=== PATIENT | male | born 1980 | race Two or more races ===

== ENCOUNTER 2016-08-22 12:27 | Day surgery (SDC) | payer OTHER ==
[2016-08-22] VITALS (9 sets, daily range): BP systolic 99–128; BP diastolic 56–70; PULSE 56–71; RESP 12–20; Ht 185.4 cm; Wt 108.0 kg
[~2016-08-22] VITALS: Ht 185.4 cm; Wt 108.0 kg
[~2016-08-22 12:27] MED LIST: CEFAZOLIN 2 GM/50 ML (PMX) 50 ML IVPB SCH; DIPHENHYDRAMINE 50 MG INJ IV PRN; FENTAnyl 50 MCG/ML VIAL IV PRN; HYDROmorphONE (0.2 MG/ML) 10ML SYG IV PRN; KETOROLAC 30 MG INJ IV ONE; MEPERIDINE 25 MG INJ IV PRN; ONDANSETRON 4 MG INJ IV PRN; OXYCODONE/ACETAMINOPHEN (5/325) TAB PO PRN; PROCHLORPERAZINE 10 MG INJ IV PRN; SOD CHLORIDE 0.9% 1,000 ML IV SCH; [UNRECOGNIZED DRUG - REMARK]
[2016-08-22] MEDS ORDERED: ATEN50TA PO (12:58)
[2016-08-22] MEDS ORDERED: LOSA1TAB19 PO (12:59)
[2016-08-22] MEDS ORDERED: FENO48TA4 PO (12:59)
[2016-08-22] MEDS ORDERED: CHOL100062 PO (13:00)
[2016-08-22 13:55] LABS: INR 1.12; PARTIAL THROMBOPLASTIN TIME 30.3 Sec (25.0-35.0); PROTIME 14.4 Sec (12.2-14.2); PT RATIO 1.1
[2016-08-22] MEDS ORDERED: PROPOFOL 20 ML ONE (14:46)
[2016-08-22] MEDS ORDERED: LIDOCAINE 2% (SDV) 5 ML INJ ONE (14:46)
[2016-08-22] MEDS ORDERED: MIDAZOLAM 1 MG/ML 2 ML INJ ONE (14:47)
[2016-08-22] MEDS ORDERED: FENTAnyl 50 MCG/ML VIAL ONE (14:47)
[2016-08-22] MEDS ORDERED: BUPIVACAINE 0.5% (SDV) 30 ML INJ ONE (15:33)
[2016-08-22] MEDS ORDERED: LIDOCAINE 2% (MDV) 20 ML INJ ONE (15:33)
[2016-08-22] MEDS ORDERED: BUPIVACAINE 0.25% (MPF) 30 ML INJ ONE (15:33)
[2016-08-22] MEDS ORDERED: CEFAZOLIN 1 GM INJ ONE (15:47)
[2016-08-22] MEDS ORDERED: ONDANSETRON 4 MG INJ ONE (15:47)
[2016-08-22] MEDS ORDERED: METOCLOPRAMIDE 10 MG INJ ONE (15:47)
[2016-08-22] MEDS ORDERED: KETOROLAC 30 MG INJ ONE (16:05)
--- NOTE | 2016-08-22 16:12 | OPR ---
Date/Time of Note Date/Time of Note DATE: 08/22/16 TIME: 16:11 Operative Report Procedure Date: Aug 22, 2016 Preoperative Diagnosis back mass Postoperative Diagnosis same Operation Performed excision of back mass 6 cm incision and 4 cm mass localized adjacent tissue transfer with the use of skin flaps 12 sq cm defect therapeutic injection subcutaneously of local anesthesia Surgeon: Lyndon FAUST Specimens back mass Lyndon FAUST Aug 22, 2016 16:12
[2016-08-22] MEDS ORDERED: HYDROCODONE/APAP (5/325) TAB PO ONE (16:30)
--- NOTE | 2016-08-22 18:37 | OPR ---
DATE OF OPERATION: 08/22/2016 INDICATION: This is a 36-year-old male with a back mass. He requests surgical excision. Risks, al ternatives, benefits, and personnel were discussed with the patient. Patient expressed understandin g and consents to the operation. PREOPERATIVE DIAGNOSIS: Back mass. POSTOPERATIVE DIAGNOSIS: Back mass. OPERATION PERFORMED: 1. Excision of back mass with a 6 cm size incision and 4 cm size mass. 2. Localized adjacent tissue transfer with the use of skin flaps with 12 square cm defect. 3. Therapeutic injection of local anesthesia. CPT code 46493. SURGEON: Jhoan Cantrell MD SPECIMEN: Back mass. COMPLICATIONS: None. ANESTHESIA: MAC. DESCRIPTION OF PROCEDURE: The patient was taken to the OR and prepped and draped in the usual steri le fashion. Surgical timeout was performed. IV antibiotics were given. Local anesthesia was infil trated in and around the back mass. Transverse incision is made with a 15 blade and the back mass w as excised using cautery. There was good hemostasis. Due to the large tissue defect, localized adj acent tissue transfer with the use of skin flaps was performed. Multilevel closure with interrupted 3-0 Vicryl and skin miryam. Dry dressings were applied. Dictated By: JHOAN CANTRELL MD SB/MERCEDES Conf#: [id number] DID#: [id number]
== END 2016-08-22 17:33 | disposition home or self-care (01) ==
LOC: SDS 12:27
PROVIDERS: ATTEND Surgery
DX: L72.0 Epidermal cyst (principal); I12.9 Hypertensive chronic kidney disease with stage 1 through stage 4 chronic kidney disease, or unspecified chronic kidney disease; N18.9 Chronic kidney disease, unspecified
CPT/HCPCS: 14000; 85610; 85730; 88305; J0690; J1885; J2250; J2405; J2765; J3010; Z7512; Z7610

== ENCOUNTER 2016-09-03 16:11 | Emergency (ER) | payer OTHER ==
[~2016-09-03] VITALS: Ht 182.9 cm; Wt 107.5 kg
[~2016-09-03 16:11] MED LIST changes: +ATEN50TA PO; -CEFAZOLIN 2 GM/50 ML (PMX) 50 ML IVPB SCH; +CHOL100062 PO; -DIPHENHYDRAMINE 50 MG INJ IV PRN; +FENO48TA4 PO; -FENTAnyl 50 MCG/ML VIAL IV PRN; -HYDROmorphONE (0.2 MG/ML) 10ML SYG IV PRN; -KETOROLAC 30 MG INJ IV ONE; +LOSA1TAB19 PO; -MEPERIDINE 25 MG INJ IV PRN; -ONDANSETRON 4 MG INJ IV PRN; -OXYCODONE/ACETAMINOPHEN (5/325) TAB PO PRN; -PROCHLORPERAZINE 10 MG INJ IV PRN; -SOD CHLORIDE 0.9% 1,000 ML IV SCH; -[UNRECOGNIZED DRUG - REMARK]
[2016-09-03 16:14] VITALS: Ht 182.9 cm; Wt 107.5 kg
[2016-09-03] MEDS ORDERED: IBUP400T22 PO (17:06)
[2016-09-03] MEDS ORDERED: ACET325T33 PO (17:06)
--- NOTE | 2016-09-04 16:31 | ERD ---
ER Documentation Chief Complaint Date/Time DATE: 09/04/16 TIME: 16:25 Chief Complaint wound check left upper back HPI This is a 36-year-old male presenting to the emergency department for wound check of postsurgical wound. Patient states he had an excision of a back mass on 08/22/[address] Cantrell. Patient states he had miryam placed to surgical incision. Patient states 2 days ago he noticed light pink/clear drainage from wound. Patient states he removed 1 of the miryam. Patient contacted his doctor's office, Dr. Cantrell, and was told to go to the ER for evaluation. No fevers or chills. No pus or purulent drainage. No warmth or redness. ROS All systems reviewed and are negative except as per history of present illness. Medications Home Meds Active Scripts Ibuprofen* (Motrin*) 400 Mg Tab, 400 MG PO Q6, #15 TAB Prov:JACY ROCHA NP 09/03/16 Acetaminophen* (Tylenol*) 325 Mg Tablet, 2 TAB PO Q6 Y for PAIN AND OR ELEVATED TEMP, #20 TAB Prov:JACY ROCHA NP 09/03/16 Reported Medications Cholecalciferol* (Vitamin D3*) 1,000 Unit Tablet, 1000 UNIT PO DAILY, TAB 08/22/16 Fenofibrate Nanocrystallized* (Fenofibrate*) 48 Mg Tablet, 48 MG PO DAILY, TAB 08/22/16 Losartan-Hydrochlorothiazide (Losartan-HCTZ) 50-12.5 Mg Tab, 1 TAB PO DAILY, TAB 08/22/16 Atenolol* (Atenolol*) 50 Mg Tablet, 50 MG PO DAILY, #30 TAB 08/22/16 Allergies Allergies: Coded Allergies: shellfish derived (Unverified Allergy, Unknown, 08/22/16) PMhx/Soc History of Surgery: No Anesthesia Reaction: No Hx Neurological Disorder: No Hx Respiratory Disorders: No Hx Cardiac Disorders: No Hx Psychiatric Problems: No Hx Miscellaneous Medical Probl: No Hx Alcohol Use: No Hx Substance Use: No Hx Tobacco Use: No Physical Exam Vitals Vital Signs Date Time Temp Pulse Resp B/P Pulse Ox O2 Delivery O2 Flow Rate FiO2 09/03/16 16:14 98.2 82 18 119/72 99 Physical Exam Const: No acute distress, alert Head: Atraumatic Eyes: Normal Conjunctiva ENT: Normal External Ears, Nose and Mouth. Neck: Full range of motion..~ No meningismus. Resp: Clear to auscultation bilaterally Cardio: Regular rate and rhythm, no murmurs Abd: Soft, non tender, non distended. Normal bowel sounds Skin: There is a 6 cm linear laceration to mid upper back. Wound is approximated with small opening to left side. There are [address] no surrounding erythema, warmth or drainage. No abscess formation or induration. No active drainage. Back: No midline or flank tenderness Ext: No cyanosis, or edema Neur: Awake and alert Psych: Normal Mood and Affect Procedures/MDM MDM: This is a 36-year-old male presenting to emergency department with drainage from postsurgical wound. On physical exam, incision is well approximated with [address] There is no surrounding erythema, warmth , drainage, abscess formation or induration. No fevers or chills. Vital signs are stable. Low suspicion for abscess, cellulitis or infection. Patient likely has normal postsurgical drainage versus seroma. Patient is appropriate for outpatient management instructed to follow-up with surgeon Dr. Cantrell. Patient states he has appointment with Dr. Cantrell in 2 days on . Return to ED for any high fever, chest pain, difficulty breathing, shortness breath, wheezing, vomiting, diarrhea, abdominal pain or any new or worsening symptoms. Patient verbalizes understanding. All questions answered at discharge. Departure Diagnosis: Primary Impression: Drainage from wound Condition: Stable Patient Instructions: Post Op Wound Check, General Referrals: Lyndon CANTRELL Additional Instructions: Call your primary care doctor TOMORROW for an appointment during the next 2-3 days.See the doctor sooner or return here if your condition worsens before your appointment time. Return to ED for any high fever, chest pain, difficulty breathing, shortness breath, wheezing, vomiting, diarrhea, abdominal pain or any new or worsening symptoms. JACY ROCHA NP Sep 04, 2016 16:31
== END 2016-09-03 17:09 | disposition home or self-care (01) ==
LOC: FTE 16:11
DX: T81.89XA Other complications of procedures, not elsewhere classified, initial encounter (principal); Y81.3 Surgical instruments, materials and general- and plastic-surgery devices (including sutures) associated with adverse incidents
CPT/HCPCS: 99283

== ENCOUNTER 2018-10-02 11:29 | Emergency (ER) | payer OTHER ==
[~2018-10-02] VITALS: Wt 110.0 kg
[~2018-10-02 11:29] MED LIST changes: +ACET325T33 PO; +IBUP-1561 PO; -LOSA1TAB19 PO; +LOSA1TAB22 PO
[2018-10-02 11:30] VITALS: BP 144/89; PULSE 71; RESP 18
[2018-10-02] MEDS ORDERED: KETOROLAC 30 MG INJ IV STA (11:54)
[2018-10-02] MEDS ORDERED: SOD CHLORIDE 0.9% 1,000 ML IV STA (11:54)
[2018-10-02] MEDS ORDERED: ONDANSETRON 4 MG INJ IV STA (11:54)
[2018-10-02] MEDS ORDERED: IODIXANOL LOCM 100 ML BTL ONE (12:40)
[2018-10-02] MEDS ORDERED: SOD CHLORIDE 0.9% 100 ML ONE (12:40)
[2018-10-02] MEDS ORDERED: NAPR-985 PO (13:47)
[2018-10-02] MEDS ORDERED: TAMS-14 PO (13:47)
[2018-10-02] MEDS ORDERED: HYDR-4011 PO (13:47)
--- NOTE | 2018-10-02 14:08 | ERD ---
ER Documentation Chief Complaint Chief Complaint LOWER ABDOMINAL PAIN HPI 38-year-old male presenting with lower abdominal pain on the left side over the last hour. He states is a very sharp stabbing type pain. He is never had this before. Last normal bowel movement was yesterday. Denies any dysuria. No history of kidney stones. Denies any fevers. No vomiting. Medical history is hypertension. NKDA. Surgical history denies. Social history denies ROS All systems reviewed and are negative except as per history of present illness. Medications Home Meds Active Scripts Naproxen* (Naprosyn*) 500 Mg Tablet, 500 MG PO BID PRN for PAIN AND/OR INFLAMMATION, #30 TAB Prov:SALVATORE ESPINOZA PA-C 10/02/18 Hydrocodone/Acetaminophen ([place] 5-325 Tablet) 1 Each Tablet, 1 TAB PO Q6H PRN for PAIN, #7 TAB Prov:SALVATORE ESPINOZA PA-C 10/02/18 Tamsulosin Hcl* (Flomax*) 0.4 Mg Cap.er.24h, 0.4 MG PO QPM, #30 CAP Prov:SALVATORE ESPINOZA PA-C 10/02/18 Ibuprofen* (Motrin*) 400 Mg Tab, 400 MG PO Q6, #15 TAB Prov:JACY ROCHA NP 09/03/16 Acetaminophen* (Tylenol*) 325 Mg Tablet, 2 TAB PO Q6 PRN for PAIN AND OR ELEVATED TEMP, #20 TAB Prov:JACY ROCHA NP 09/03/16 Reported Medications Cholecalciferol* (Vitamin D3*) 1,000 Unit Tablet, 1000 UNIT PO DAILY, TAB 08/22/16 Fenofibrate Nanocrystallized* (Fenofibrate*) 48 Mg Tablet, 48 MG PO DAILY, TAB 08/22/16 Losartan-Hydrochlorothiazide (Losartan-HCTZ) 50-12.5 Mg Tab, 1 TAB PO DAILY, TAB 08/22/16 Atenolol* (Atenolol*) 50 Mg Tablet, 50 MG PO DAILY, #30 TAB 08/22/16 Allergies Allergies: Coded Allergies: shellfish derived (Unverified Allergy, Unknown, 08/22/16) PMhx/Soc History of Surgery: No Anesthesia Reaction: No Hx Neurological Disorder: No Hx Respiratory Disorders: No Hx Cardiac Disorders: No Hx Psychiatric Problems: No Hx Miscellaneous Medical Probl: No Hx Alcohol Use: No Hx Substance Use: No Hx Tobacco Use: No Smoking Status: Never smoker FmHx Family History: No diabetes, No coronary disease, No other Physical Exam Vitals Vital Signs Date Temp Pulse Resp B/P (MAP) Pulse Ox O2 O2 Flow FiO2 Time Delivery Rate 10/02/18 97.2 71 18 144/89 99 11:30 (107) Physical Exam GENERAL: The patient is well-appearing, well-nourished, in no acute distress HEENT: Atraumatic. Conjunctivae are pink. Pupils equal, round, and reactive to light. There is no scleral icterus. Tympanic membranes clear bilaterally. NECK: C-spine is soft and supple. There is no meningismus. There is no cervical lymphadenopathy. CHEST: Clear to auscultation bilaterally. There are no rales, wheezes or rhonchi. HEART: Regular rate and rhythm. No murmurs, clicks, rubs or gallops. ABDOMEN: Normal active bowel sounds. No distention. No organomegaly. Tender palpation of the left flank with no rigidity. BACK: No midline or flank tenderness. Result Diagram: 10/02/18 1158 10/02/18 1158 Results 24 hrs Laboratory Tests Test 10/02/18 11:58 White Blood Count 7.6 10^3/ul Red Blood Count 5.12 10^6/ul Hemoglobin 14.8 g/dl Hematocrit 44.3 % Mean Corpuscular Volume 86.5 fl Mean Corpuscular Hemoglobin 28.9 pg Mean Corpuscular Hemoglobin Concent 33.4 g/dl Red Cell Distribution Width 13.1 % Platelet Count 214 10^3/UL Mean Platelet Volume 10.4 fl Immature Granulocytes % 0.400 % Neutrophils % 60.6 % Lymphocytes % 28.3 % Monocytes % 8.5 % Eosinophils % 1.7 % Basophils % 0.5 % Nucleated Red Blood Cells % 0.0 /100WBC Immature Granulocytes # 0.030 10^3/ul Neutrophils # 4.6 10^3/ul Lymphocytes # 2.1 10^3/ul Monocytes # 0.6 10^3/ul Eosinophils # 0.1 10^3/ul Basophils # 0.0 10^3/ul Nucleated Red Blood Cells # 0.0 10^3/ul Urine Color YELLOW Urine Clarity SLIGHTLY CLOUDY Urine pH 6.0 Urine Specific [place] 1.024 Urine Ketones NEGATIVE mg/dL Urine Nitrite NEGATIVE mg/dL Urine Bilirubin NEGATIVE mg/dL Urine Urobilinogen NEGATIVE mg/dL Urine Leukocyte Esterase NEGATIVE [place]/ul Urine Microscopic RBC 126 /HPF Urine Microscopic WBC 1 /HPF Urine Mucus FEW /HPF Urine Hemoglobin 3+ mg/dL Urine Glucose NEGATIVE mg/dL Urine Total Protein NEGATIVE mg/dl Sodium Level 143 mmol/L Potassium Level 3.8 mmol/L Chloride Level 103 mmol/L Carbon Dioxide Level 30 mmol/L Anion Gap 10 Blood Urea Nitrogen 19 mg/dl Creatinine 1.29 mg/dl Est Glomerular Filtrat Rate mL/min > 60 mL/min Glucose Level 111 mg/dl Calcium Level 9.8 mg/dl Total Bilirubin 0.6 mg/dl Direct Bilirubin 0.00 mg/dl Indirect Bilirubin 0.6 mg/dl Aspartate Amino Transf (AST/SGOT) 30 IU/L Alanine Aminotransferase (ALT/SGPT) 38 IU/L Alkaline Phosphatase 51 IU/L Total Protein 7.9 g/dl Albumin 4.5 g/dl Globulin 3.40 g/dl Albumin/Globulin Ratio 1.32 Lipase 180 U/L Current Medications Medications Dose Sig/Sol Start Time Status Last (Trade) Ordered Route PRN Stop Time Admin Dose Reason Admin Sodium 1,000 ml @ Q1H STAT 10/02/18 DC 10/02/18 Chloride 1,000 mls/hr IV 11:54 12:01 10/02/18 12:53 Ondansetron 4 mg ONCE STAT 10/02/18 DC 10/02/18 HCl (Zofran IV 11:54 12:02 Inj) 10/02/18 11:56 Ketorolac 30 mg ONCE STAT 10/02/18 DC 10/02/18 Tromethamine IV 11:54 12:02 (Toradol) 10/02/18 11:56 IV Flush 10 ml STK-MED 10/02/18 DC 10/02/18 (NS 10 ml) ONCE .ROUTE 12:40 12:49 10/02/18 12:41 Sodium 100 ml @ ud STK-MED 10/02/18 DC 10/02/18 Chloride ONCE .ROUTE 12:40 12:49 10/02/18 12:41 Iodixanol 100 ml STK-MED 10/02/18 DC 10/02/18 (Visipaque ONCE .ROUTE 12:40 12:49 Locm) 10/02/18 12:41 Procedures/MDM DIAGNOSTIC IMAGING REPORT Patient: RADHA PEREZ : 1980 Age: 38 Sex: M MR #: [id number] DOS: 10/02/18 1154 Ordering MD: IRAM ESPINOZA PA-C Location: [facility] Room/Bed: PROCEDURE: CT Abdomen and Pelvis with contrast. CLINICAL INDICATION: Abdominal pain. TECHNIQUE: CT scan of the abdomen and pelvis with contrast was performed on a multi-detector high-resolution CT scanner. The patient was scanned following the uncomplicated intravenous administration of 100 cc of Visipaque 320. Coronal and sagittal reformatted images were obtained from the axial source images. One or more of the following dose reduction techniques were used: Automated exposure control, adjustment of the mA and/or kV according to patient size, use of iterative reconstruction technique. Images were reviewed on a high-resolution PACS workstation. DICOM images are available. The total exam CTDI equals 21.56 mGy and the total exam DLP equals 1370.38 mGy-cm. COMPARISON: CT from 06/18/2014. FINDINGS: CT ABDOMEN: Visualized lung bases: No significant infiltrate or pleural/pericardial effusion. The heart size is normal. The right hemidiaphragm is elevated. Liver: The liver is enlarged measuring 19 cm and demonstrates normal overall enhancement. Liver appears diffusely hypoattenuating. No evidence of solid hepatic mass or intrahepatic ductal dilatation. Patent portal vein. Gallbladder and bile ducts: Unremarkable. Spleen: Unremarkable. Pancreas: Unremarkable. No ductal dilatation, mass, or peripancreatic stranding. Adrenal glands: Unremarkable. Kidneys: There is a 3 mm obstructive calculus at the left ureterovesicular junction resulting in mild left-sided hydroureteronephrosis and delayed left nephrogram. No additional stones or solid lesions seen. Vasculature: No abdominal aortic aneurysm. Negative IVC. Lymph nodes: No adenopathy. GI: No hiatal hernia. There is no evidence of inflamed appendix. Negative terminal ileum. Negative rectum. No evidence of obstruction. Negative sigmoid colon. Peritoneal cavity: There is a small fat-containing umbilical hernia. No free fluid or free air. CT PELVIS: : Normal appearing bladder . The pelvic organs are unremarkable. Peritoneal cavity: No free fluid or free air. Lymph nodes: No adenopathy. Osseous structures: No acute osseous injury. No lytic or blastic lesions. Other: None. IMPRESSION: 1. 3 mm obstructive calculus at the left ureterovesicular junction resulting in mild left-sided hydroureteronephrosis and delayed left renal enhancement. 2. Small fat-containing umbilical hernia. 3. Hepatomegaly with suggestion of hepatic steatosis. ER Course: 1L NS and toradol given in ED. upon reevaluation patient was resting comfortably in the bed. MDM: 38-year-old male presenting with left flank pain. Patient has findings consistent with stone on the left side. Patient's kidney function is within normal limits. I have low suspicion for septic stone as patient's blood work is within normal limits and there is no signs of infection on urinalysis. I have low suspicion for bowel obstruction or other acute abdominal emergencies patient CT scan is within normal limits. Patient's kidney function is within normal limits. Patient is recommended to take medication for supportive treatment and follow-up with urologist. There is no indication for admission at this time. Patient is discharged with strict ER precautions and told to follow-up with primary care within 1 to 2 days for close evaluation. Patient is told symptoms change or worsen to return immediately to the ER. All questions answered at d ischarge Departure Diagnosis: Primary Impression: Kidney stone Condition: Stable Patient Instructions: Kidney Stone W/ Colic Referrals: NELL MARTINEZ MD Additional Instructions: FOLLOW UP WITH YOUR PRIMARY CARE PHYSICIAN TOMORROW.Return to this facility if you are not improving as expected. SALVATORE ESPINOZA PA-C Oct 02, 2018 14:08
== END 2018-10-02 14:02 | disposition home or self-care (01) ==
LOC: FTE 11:29
DX: N20.0 Calculus of kidney (principal); I10 Essential (primary) hypertension
CPT/HCPCS: 36415; 74177; 80053; 81001; 83690; 85025; 96361; 96374; 96375; J1885; J2405; J7030; Q9967; Z7502; Z7610